=== PATIENT | female | born 1995 | race Caucasian/White ===

== ENCOUNTER 2019-01-30 18:37 | Emergency (ER) | payer BC ==
[~2019-01-30] VITALS: Ht 175.3 cm; Wt 86.2 kg
[2019-01-30 19:20] LABS: ABSOLUTE NEUTROPHILS 2.9 thou/uL (1.4-8.2); BASOPHILS 0.8 % (0.0-2.0); EOSINOPHILS 0.1 % (0.0-3.0); HEMATOCRIT 39.6 % (37.0-47.0); HEMOGLOBIN 13.4 gm/dL (12.0-15.0); LYMPHOCYTES 24.8 % (24.0-44.0); MCH 27.4 pg (26.0-34.0); MCHC 33.9 g/dL (28.0-37.0); MCV 80.6 fL (80.0-100.0); PLATELET COUNT 168 thou/uL (150-400); POLYS 69.3 % (36.0-66.0); RBC 4.91 mil/uL (4.20-5.00); RDW 12.7 % (10.5-14.5); WBC 4.2 thou/uL (4.0-11.0)
[2019-01-30 19:28] LABS: CALCIUM 9.3 mg/dL (8.5-10.1); CREATININE 0.8 mg/dL (0.6-1.0); POTASSIUM 3.5 mmol/L (3.5-5.1)
[2019-01-30 19:40] LABS: URINE BILIRUBIN NEGATIVE (Negative); URINE BLOOD 1+ (Negative); URINE COLOR YELLOW; URINE GLUCOSE-RANDOM* NEGATIVE (Negative); URINE KETONES 2+ (Negative); URINE LEUKOCYTES-REFLEX NEGATIVE (Negative); URINE NITRITE-REFLEX NEGATIVE (Negative); URINE PROTEIN (DIPSTICK) NEGATIVE (Negative); URINE SPECIFIC GRAVITY 1.015 (1.005-1.035); URINE UROBILINOGEN 0.2 E.U./dl (0.2-1.0)
[2019-01-30 19:43] LABS: URINE CLARITY CLEAR
[2019-01-30 19:50] LABS: SQUAMOUS 4-10 Moderate /LPF (0-3)
[2019-01-30 19:51] LABS: BACTERIA-REFLEX 1-9 Few /HPF (None Seen); CASTS None Seen /LPF (None Seen); CRYSTALS None Seen /LPF (None Seen); URINE RBC 3-10 Few /HPF (0-2); URINE WBC-REFLEX 0-5 Rare /HPF (0-5)
[2019-01-30 20:05] VITALS: BP 111/60
== END 2019-01-30 20:05 | disposition home or self-care (01) ==
LOC: ER 18:37
PROVIDERS: Nurse Practitioner
DX: R51 Headache (principal); K58.9 Irritable bowel syndrome, unspecified; J45.909 Unspecified asthma, uncomplicated; Z87.891 Personal history of nicotine dependence

== ENCOUNTER 2021-06-26 17:47 | Emergency (ER) | payer OTHER ==
[~2021-06-26] VITALS: Ht 172.7 cm; Wt 90.7 kg
[2021-06-26 18:34] VITALS: BP 120/79
[2021-06-26] MEDS ORDERED: ADVAIR HFA 230M12 GM INH (20:44)
[2021-06-26] MEDS ORDERED: CLONIDINE HCL0.1 MG PO (20:45)
[2021-06-26] MEDS ORDERED: ADDERALL 20 MG20 M1 PO (20:45)
[2021-06-26] MEDS ORDERED: VITAMIN D21250 MCG PO (20:45)
[2021-06-26] MEDS ORDERED: CITALOPRAM HBR40 MG PO (20:45)
[2021-06-26] MEDS ORDERED: DEXTROAMP-AMPHE30 MG PO (20:46)
[2021-06-26] MEDS ORDERED: ADDERALL 20 MG20 MG PO (20:46)
[2021-06-26] MEDS ORDERED: WELLBUTRIN SR150 MG PO (20:46)
[2021-06-26] MEDS ORDERED: ADDERALL XR 3030 MG PO (20:47)
[2021-06-26] MEDS ORDERED: CLONAZEPAM 1 MG1 M1 PO (20:47)
[2021-06-26] MEDS ORDERED: REXULTI1 MG PO (20:47)
[2021-06-26] MEDS ORDERED: ELURYNG VAGINA1 EACH VAG (20:48)
[2021-06-26] MEDS ORDERED: WIXELA 250-501 EACH INH (20:48)
[2021-06-26] MEDS ORDERED: ZANAFLEX4 MG PO (20:57)
[2021-06-26] MEDS ORDERED: MOBIC7.5 MG PO (20:57)
== END 2021-06-26 22:06 | disposition home or self-care (01) ==
LOC: ER 17:47
DX: M54.2 Cervicalgia (principal); R51.9 Headache, unspecified; J45.909 Unspecified asthma, uncomplicated; Z87.891 Personal history of nicotine dependence; Z79.899 Other long term (current) drug therapy; V49.88XA Car occupant (driver) (passenger) injured in other specified transport accidents, initial encounter; Y93.89 Activity, other specified; Y92.413 State road as the place of occurrence of the external cause; Y99.9 Unspecified external cause status

== ENCOUNTER 2021-07-30 08:17 | Emergency (ER) | payer BC ==
[~2021-07-30] VITALS: Ht 175.3 cm; Wt 88.5 kg
[~2021-07-30 08:17] MED LIST: ADDERALL 20 MG20 M1 PO; ADDERALL 20 MG20 MG PO; ADDERALL XR 3030 MG PO; ADVAIR HFA 230M12 GM INH; CITALOPRAM HBR40 MG PO; CLONAZEPAM 1 MG1 M1 PO; CLONIDINE HCL0.1 MG PO; DEXTROAMP-AMPHE30 MG PO; ELURYNG VAGINA1 EACH VAG; MOBIC7.5 MG PO; REXULTI1 MG PO; VITAMIN D21250 MCG PO; WELLBUTRIN SR150 MG PO; WIXELA 250-501 EACH INH; ZANAFLEX4 MG PO
[2021-07-30 08:30] VITALS: BP 115/79
== END 2021-07-30 09:35 | disposition home or self-care (01) ==
LOC: ER 08:17
DX: H57.12 Ocular pain, left eye (principal); J45.909 Unspecified asthma, uncomplicated; Z79.899 Other long term (current) drug therapy; Z87.891 Personal history of nicotine dependence